=== PATIENT | female | born 1990 | race Two or more races ===

== ENCOUNTER 2021-04-06 09:28 | Emergency (ER) | payer OTHER ==
[~2021-04-06] VITALS: Ht 160 cm; Wt 90.7 kg
[2021-04-06 09:45] VITALS: BP 146/100
[2021-04-06] MEDS ORDERED: LIDOCAINE 1% HCL (LOCAL ANESTH.) INJ 20ML MDV ONE (10:38)
[2021-04-06] MEDS ORDERED: cefTRIAXone SOD 1,000 MG VL IM ONE (10:45)
[2021-04-06] MEDS ORDERED: KETOROLAC TROMETH 60MG/2ML VIAL IM ONE (10:45)
== END 2021-04-06 11:01 | disposition home or self-care (01) ==
LOC: ER 09:28
DX: L73.2 Hidradenitis suppurativa (principal); Z88.5 Allergy status to narcotic agent
CPT/HCPCS: 96372; 99284; J0696; J1885; J2001

== ENCOUNTER 2021-05-13 08:09 | Emergency (ER) | payer OTHER ==
[~2021-05-13] VITALS: Ht 162.6 cm; Wt 83.5 kg
[2021-05-13 08:49] VITALS: BP 135/87
== END 2021-05-13 09:22 | disposition home or self-care (01) ==
LOC: ER 08:09
DX: L02.31 Cutaneous abscess of buttock (principal); Z88.5 Allergy status to narcotic agent

== ENCOUNTER 2024-04-24 09:24 | Emergency (ER) | payer MEDICAID, OTHER ==
[~2024-04-24] VITALS: Ht 160 cm; Wt 93.2 kg
[2024-04-24] MEDS ORDERED: TRAM-626 PO (10:46)
[2024-04-24] MEDS ORDERED: CLIN1CAP70 PO (10:46)
[2024-04-24 10:49] VITALS: BP 139/88; PULSE 89; RESP 16; TEMP 98.4; O2SAT 94
== END 2024-04-24 11:03 | disposition home or self-care (01) ==
LOC: ER 09:24
DX: L73.2 Hidradenitis suppurativa (principal); E66.01 Morbid (severe) obesity due to excess calories; Z68.36 Body mass index [BMI] 36.0-36.9, adult; Z48.00 Encounter for change or removal of nonsurgical wound dressing; Z88.5 Allergy status to narcotic agent; Z79.899 Other long term (current) drug therapy